=== PATIENT | female | born 1980 | race American Indian/Alaskan Native ===

== ENCOUNTER 2016-09-29 08:14 | Outpatient (CLI) | payer BC ==
--- NOTE | 2016-09-29 10:27 | Mammography Report ---
BILATERAL DIGITAL SCREENING MAMMOGRAM with CAD: 09/29/16 08:14:00 CLINICAL: Routine screening. COMPARISON:08/08/15 and 04/02/14 FINDINGS: There are bilateral scattered fibroglandular densities. A right upper asymmetry with architectural distortion on the MLO view requires additional imaging.No suspicious calcifications. The left breast is negative. IMPRESSION: Right asymmetry and architectural distortion requiring further workup. BI-RADS CATEGORY: 0 -- Additional Imaging Evaluation Required RECOMMENDATION: Recall for right mediolateral and spot compression MLO views and right breast ultrasound if needed. ACR BI-RADS MAMMOGRAPHIC CODES: 0 = Needs additional imaging evaluation; 1 = Negative; 2 = Benign; 3 = Probably benign; 4 = Suspicious; 5 = Malignant; 6 = Known biopsy-proven malignancy COMMENT: 1. Dense breast tissue, i.e., adenosis, fibrocystic changes, etc., may obscure an underlying neoplasm. 2. Approximately 10% of cancers are not detected with mammography. 3. A negative mammography report should not delay biopsy if a clinically suspicious mass is present. COMMENT: Patient follow-up letters are generated via our [employer] application.
== END 2016-09-29 08:15 | disposition home or self-care (01) ==
LOC: MAMMO 08:14
PROVIDERS: ATTEND Obstetrics & Gynecology
DX: Z12.31 Encounter for screening mammogram for malignant neoplasm of breast (principal)
CPT/HCPCS: 77067; G0202

== ENCOUNTER 2016-10-30 08:11 | Outpatient (CLI) | payer BC ==
--- NOTE | 2016-10-30 08:40 | Mammography Report ---
Spot compression magnification and 90degree lateral of focal asymmetry upper anterior right breast: Findings: There is complete effacement noted of the density. No mass or microcalcification is seen. Impression: Benign findings. Annual followup recommended. BI-RADS CATEGORY: 2 = Benign ACR BI-RADS MAMMOGRAPHIC CODES: 0 = Needs additional imaging evaluation; 1 = Negative; 2 = Benign; 3 = Probably benign; 4 = Suspicious; 5 = Malignant; 6 = Known biopsy-proven malignancy COMMENT: 1. Dense breast tissue, i.e., adenosis, fibrocystic changes, etc., may obscure an underlying neoplasm. 2. Approximately 10% of cancers are not detected with mammography. 3. A negative mammography report should not delay biopsy if a clinically suspicious mass is present. COMMENT: Patient follow-up letters are generated in [employer].
== END 2016-10-30 08:12 | disposition home or self-care (01) ==
LOC: MAMMO 08:11
PROVIDERS: ATTEND Obstetrics & Gynecology
DX: R92.8 Other abnormal and inconclusive findings on diagnostic imaging of breast (principal)
CPT/HCPCS: G0206-RT

== ENCOUNTER 2017-12-20 11:07 | Outpatient (CLI) | payer BC ==
--- NOTE | 2017-12-21 11:10 | Mammography Report ---
BILATERAL DIGITAL SCREENING MAMMOGRAM with CAD: 12/20/17 11:07:00 CLINICAL: Routine screening. COMPARISON:09/29/16 FINDINGS: There are bilateral scatter fibroglandular densities. A new right asymmetry on the MLO view requires additional imaging.No architectural distortion or suspicious calcifications.The left breast is negative. IMPRESSION: Right asymmetry requiring further workup. BI-RADS CATEGORY: 0 -- Additional Imaging Evaluation Required RECOMMENDATION: Recall for right mediolateral and spot compression MLO and exaggerated CC views and right breast ultrasound if needed. ACR BI-RADS MAMMOGRAPHIC CODES: 0 = Needs additional imaging evaluation; 1 = Negative; 2 = Benign; 3 = Probably benign; 4 = Suspicious; 5 = Malignant; 6 = Known biopsy-proven malignancy COMMENT: 1. Dense breast tissue, i.e., adenosis, fibrocystic changes, etc., may obscure an underlying neoplasm. 2. Approximately 10% of cancers are not detected with mammography. 3. A negative mammography report should not delay biopsy if a clinically suspicious mass is present. COMMENT: Patient follow-up letters are generated via our [employer] application.
== END 2017-12-20 11:08 | disposition home or self-care (01) ==
LOC: SPVWC 11:07
PROVIDERS: ATTEND Surgery
DX: Z12.31 Encounter for screening mammogram for malignant neoplasm of breast (principal)
CPT/HCPCS: 77067

== ENCOUNTER → 2018-01-12 | Outpatient (CLI) | payer BC ==
--- NOTE | 2018-01-12 14:20 | Mammography Report ---
RIGHT DIGITAL DIAGNOSTIC MAMMOGRAM and RIGHT BREAST ULTRASOUND: 01/12/18 08:29:00 CLINICAL: Recalled for asymmetry. COMPARISON:12/20/17 screening FINDINGS: LM, exaggerated CC and spot compression MLO views were performed and demonstrate a persistent upper outer low density asymmetry. Ultrasound of the upper outer right breast was performed and demonstrated no mass, cyst or shadowing. A lymph node with central fat and benign morphology is identified at 11 o'clock 15 cm from the nipple. It correlates with the mammographic density and measures 2.6 x 1.1 x 1.4 cm. IMPRESSION: An enlarged right axillary lymph node with benign morphology. No suspicious findings. BI-RADS CATEGORY: 2 - - Benign RECOMMENDATION: Clinical followup and routine mammographic screening in one year. ACR BI-RADS MAMMOGRAPHIC CODES: 0 = Needs additional imaging evaluation; 1 = Negative; 2 = Benign; 3 = Probably benign; 4 = Suspicious; 5 = Malignant; 6 = Known biopsy-proven malignancy COMMENT: 1. Dense breast tissue, i.e., adenosis, fibrocystic changes, etc., may obscure an underlying neoplasm. 2. Approximately 10% of cancers are not detected with mammography. 3. A negative mammography report should not delay biopsy if a clinically suspicious mass is present. COMMENT: Patient follow-up letters are generated via our [employer] application.
== END | disposition home or self-care (01) ==
LOC: SPVWC 08:29
PROVIDERS: ATTEND Surgery
DX: N63.31 Unspecified lump in axillary tail of the right breast (principal); K21.9 Gastro-esophageal reflux disease without esophagitis; E66.01 Morbid (severe) obesity due to excess calories; Z68.42 Body mass index [BMI] 45.0-49.9, adult

== ENCOUNTER 2019-07-25 08:18 | Outpatient (CLI) | payer BC ==
--- NOTE | 2019-07-25 13:13 | Magnetic Resonance Report ---
BILATERAL BREAST MR WITHOUT AND WITH GADOLINIUM INDICATION: Family history of breast cancer and BRCA 2 positive gene mutation COMPARISONS: 01/02/2019 mammogram TECHNIQUE: Axial 1.0 mm T1 without, axial high-resolution 2.0 mm T2 and axial 1.0 mm dynamic vibrant high-resolution postcontrast T1 fat saturation sequences on a 1.5 Celena magnet. The examination was p erformed with an 8-channel dedicated [place] breast coil. Post-processing with CAD and subtraction was performed on an [employer] workstation. 18.0 cc of MultiHance was injected without incident for the c ontrast portion of the exam. Consent was obtained prior to the administration of the contrast. FINDINGS: RIGHT BREAST: Minimal background parenchymal enhancement. No mass or suspicious enhancement. No suspi cious lymph nodes. LEFT BREAST: Minimal background parenchymal enhancement. No mass or suspicious enhancement. No suspic ious lymph nodes. IMPRESSION: Normal study. Recommend routine mammographic screening and routine MRI screening. BI-RADS Category 1: Negative Signer Name: Anthony Moura MD Signed: 07/25/2019 1:09 PM Workstation Name: [id number]
== END 2019-07-25 08:19 | disposition home or self-care (01) ==
LOC: SPVIMAG 08:18
PROVIDERS: ATTEND Surgery
DX: Z15.01 Genetic susceptibility to malignant neoplasm of breast (principal); Z15.02 Genetic susceptibility to malignant neoplasm of ovary
CPT/HCPCS: A9577; C8908; 77049

== ENCOUNTER 2020-01-01 10:36 | Observation (INO) | payer BC ==
[2020-01-01] MEDS ORDERED: ONDANSETRON 4 MG/2 ML INJ IV PRN ×2 (11:22→15:03)
[2020-01-01] MEDS ORDERED: HYDROmorphone 1 MG/1 ML INJ IV PRN (11:22)
--- NOTE | 2020-01-01 11:25 | Anesthesia Consultation ---
Anesthesia Consult and Med Hx Date of service: 01/01/20 - Airway Anesthetic Teeth Evaluation: Good ROM Head & Neck: Adequate Mental/Hyoid Distance: Adequate Mallampati Class: Class III Intubation Access Assessment: Probably Good (previous easy intubation with MAC 3) - Pulmonary Exam CTA: Yes - Cardiac Exam Cardiac Exam: RRR - Pre-Operative Health Status ASA Pre-Surgery Classification: ASA1 Proposed Anesthetic Plan: General - Pulmonary Hx Smoking: No Hx Respiratory Symptoms: No - Cardiovascular System Hx Hypertension: No Hx Heart Attack/AMI: No Hx Percutaneous Transluminal Coronary Angioplasty (PTCA): No Hx Cardia Arrhythmia: No - Central Nervous System CVA: No - Gastrointestinal Hx Gastroesophageal Reflux Disease: Yes (Mild) - Endocrine Hx Renal Disease: No Hx Liver Disease: No Hx Insulin Dependent Diabetes: No Hx Non-Insulin Dependent Diabetes: No Hx Thyroid Disease: No - Other Systems Hx Obesity: Yes (hx gastric sleeve surgery) - Additional Comments Anesthesia Medical History Comments: No hx anesthetic complications.
--- NOTE | 2020-01-01 11:25 | Anesthesia Day of Surgery ---
Anesthesia Day of Surgery - Day of Surgery Patient Examined: Yes Patient H&P Reviewed: Yes Patient is NPO: Yes
[2020-01-01] MEDS ORDERED: MIDAZOLAM 2 MG/2 ML INJ IV NR (12:00)
[2020-01-01] MEDS ORDERED: LACTATED RINGERS 1,000 ML IV SCH ×2 (12:00→16:00)
[2020-01-01] MEDS ORDERED: HYDROmorphone 1 MG/1 ML INJ ONE (12:59)
[2020-01-01] MEDS ORDERED: LIDOCAINE MPF (2%) 20 MG/1 ML VIAL 5 ML ONE (12:59)
[2020-01-01] MEDS ORDERED: propofoL 200 MG/20 ML VIAL IV ONE ×2 (12:59→13:41)
[2020-01-01] MEDS ORDERED: GENTAMICIN 40 MG/ML VIAL 2 ML ONE (13:17)
[2020-01-01] MEDS ORDERED: BACITRACIN 50,000 UNIT VIAL ONE (13:17)
[2020-01-01] MEDS ORDERED: ceFAZolin 1 GM VIAL ONE (13:17)
[2020-01-01] MEDS ORDERED: ceFAZolin/STERILE WATER 2 GM/20 ML SYRINGE IV NR (14:00)
[2020-01-01] MEDS ORDERED: ONDANSETRON 4 MG/2 ML INJ ONE (14:28)
[2020-01-01] MEDS ORDERED: dexAMETHasone 20 MG/5 ML VIAL ONE (14:28)
[2020-01-01] MEDS ORDERED: BACITRACIN 50,000 UNIT VIAL IR ONE (14:41)
[2020-01-01] MEDS ORDERED: GENTAMICIN 40 MG/ML VIAL 2 ML IV ONE ×2 (14:42)
[2020-01-01] MEDS ORDERED: ceFAZolin 1 GM VIAL IV ONE (14:42)
[2020-01-01] MEDS ORDERED: SODIUM CHLORIDE 0.9% IRRIG SOLN 2000 ML IR ONE (14:58)
[2020-01-01] MEDS ORDERED: SODIUM CHLORIDE 0.9% IRR 1,500 ML BOTTLE IR ONE (14:59)
[2020-01-01] MEDS ORDERED: ACETAMINOPHEN 325 MG TAB PO PRN (15:03)
[2020-01-01] MEDS ORDERED: METOCLOPRAMIDE 10 MG TAB PO PRN (15:03)
[2020-01-01] MEDS ORDERED: oxyCODONE /ACETAMINOPHEN 5-325MG TAB PO PRN (15:03)
[2020-01-01] MEDS ORDERED: diphenhydrAMINE 25 MG CAP PO PRN (15:03)
--- NOTE | 2020-01-01 15:03 | Operative Report ---
Operative Report Operative Report: Plastic Surgery Operative Report Preoperative Diagnosis: Acquired absence of the bilateral breasts s/p Tissue Xm1 Tank Driver reconstruction now with seroma and open wound of the left breast with tissue hoop maker machine exposure. Postoperative Diagnosis: Same Procedure: Excisional debridement of left breast wound; removal of tissue hoop maker machine Surgeon: Mary Lauren MD Deck Molder: None Anesthesia: General Specimens: subpectoral aerobic and anaerobic swab cultures; left breast skin; tissue hoop maker machine. EBL: Minimal Indications: This patient is a 39 year old female who underwent bilateral breast reconstruction immediately following mastectomy with a tissue hoop maker machine Flex HD. Over the weekend she noticed that her left breast incision was open, and her tissue hoop maker machine was visible underneath. Photos she shared demonstrated very large area of TE exposure. She was instructed to cover the wound with sterile gauze and come into clinic on Wednesday. We discussed her best options which included removal of tissue hoop maker machine and allowing time to heal with a plan to revisit reconstruction later. Patient agreed with this plan and she was scheduled for excisional debridement of the left breast wound with removal of the tissue hoop maker machine. We discussed the plan for future reconstruction at length with the patient. Informed consent was obtained. Procedure: After review of pertinent history and physical exam findings patient was brought into the operating room and placed supine on the OR table. After induction of adequate endotracheal anesthesia the bilateral breasts were prepped and draped in the usual sterile surgical fashion. To begin, on the left side, using the existing open wound, marking pen was used to delineate the fibrotic skin edges that were to be excised. A No. 10 blade was used to excise the aforementioned skin and electrocautery was used for hemostasis. Cultures were taken and then the implant was removed without difficulty. The FlexHD visible within the implant pocket was found to be almost 100% incorporated. Next, thorough irrigation was done with pulse lavage using triple antibiotic solution. A 15 Nepali Chauncey drain was placed and the incision was closed in 3 layers using a 3-0 Monocryl Quill and 2-0 Monocryl suture. The incisions were then sealed with Dermabond and dressed with Telfa and tegaderm and the drain placed to suction. A surgical binder was placed for added hemostasis. The patient was then awakened from general anesthesia and transferred to the recovery room in stable condition. There were no complications. All sponge needle and instrument counts were correct at the end of the case.
[2020-01-01] MEDS ORDERED: LACTATED RINGERS 1,000 ML ONE (15:32)
--- NOTE | 2020-01-01 16:00 | Post Anesthesia Evaluation ---
- Post Anesthesia Evaluation Patient Participated: Yes Airway Patent: Yes Stable Respiratory Function: Yes Nausea/Vomiting: No Temp > 96.8F: Yes Pain Manageable: Yes Adequeate Hydration: Yes Anesthesia Complications: No
[2020-01-01] MEDS: IBUPROFEN 800 MG TAB PO PRN (18:26)
[2020-01-01] MEDS: ceFAZolin/NS 1 GM/50 ML 1 GM/50 ML BAG IV SCH (21:46)
[2020-01-01] MEDS: HYDROcodone/ACETAMINOPHEN 7.5-325MG TAB PO PRN (21:46)
[2020-01-01] MEDS: DOCUSATE SODIUM 100 MG CAP PO SCH (21:46)
[2020-01-02] MEDS: HYDROcodone/ACETAMINOPHEN 7.5-325MG TAB PO PRN (04:09)
[2020-01-02] MEDS: ceFAZolin/NS 1 GM/50 ML 1 GM/50 ML BAG IV SCH (06:26)
[2020-01-02] MEDS: DOCUSATE SODIUM 100 MG CAP PO SCH (10:35)
[2020-01-02] MEDS: IBUPROFEN 800 MG TAB PO PRN (10:35)
[2020-01-02 16:10] VITALS: BP 120/80
== END 2020-01-02 16:15 | disposition home or self-care (01) ==
LOC: OR 10:36 → OB 15:03
PROVIDERS: ADMIT Plastic Surgery; ATTEND Plastic Surgery
DX: S21.002A Unspecified open wound of left breast, initial encounter (principal); Z90.13 Acquired absence of bilateral breasts and nipples; X58.XXXA Exposure to other specified factors, initial encounter; Y93.89 Activity, other specified; Y92.89 Other specified places as the place of occurrence of the external cause
CPT/HCPCS: 11042; 11971; 81025; 87075; 87076; 87116; 87186; 88300; 88305; 96361; 96365; 96366; 96375; 96376; A4217; G0378; J0690; J1100; J1170; J1580; J2250; J2405; J2704; J7120; 88302